=== PATIENT | female | born 1990 | race Caucasian/White ===

== ENCOUNTER 2020-02-19 10:36 | Inpatient (IN) ==
[2020-02-19] MEDS ORDERED: OXYTOCIN 30 UNITS/500 ML BAG IV PRN ×2 (11:40→18:48)
[2020-02-19] MEDS ORDERED: miSOPROStoL 50 MCG TAB PO ONE (11:40)
[2020-02-19 12:10] LABS: Hematocrit (blood only) 30.6 % (37-47); Hemoglobin 10.8 g/dL (12.0-16.0); Mean Corpuscular Hemoglobin 32.3 pg (25-34); Mean Corpuscular Volume 91.6 fL (80-100); Mean Platelet Volume 10.7 fL (7.4-10.4); Platelet Count 155 K/uL (130-400); RDW Coefficient of Variation 12.9 % (11.5-14.5); RDW Standard Deviation 42.7 fL (36.4-46.3); Red Blood Count 3.34 M/uL (4.2-5.4)
[2020-02-19 12:25] LABS: Mean Corpuscular Hgb Conc 35.3 g/dL (32-36)
[2020-02-19] MEDS: LACTATED RINGER'S 1,000 ML IV PRN ×3 (15:03→17:32)
[2020-02-19 15:28] LABS: Amphetamines+Metham, Urine Pos (Neg); Barbiturates, Urine Neg (Neg); Benzodiazepine, Urine Neg (Neg); Cocaine, Urine Neg (Neg); MDMA (Ecstacy), Urine Neg (Neg); Methadone, Urine Neg (Neg); Opiate, Urine Neg (Neg); Phencyclidine, Urine Neg (Neg)
[2020-02-19] MEDS ORDERED: ePHEDrine sulfate 50 MG/ML AMP ONE (16:40)
[2020-02-19] MEDS ORDERED: fentaNYL citrate 100 MCG/2 ML VIAL ONE (16:41)
[2020-02-19] MEDS ORDERED: BUPIVACAINE 0.25% 30 ML VIAL ONE (16:41)
[2020-02-19] MEDS ORDERED: fentaNYL 2MCG/ML ROPIV 1.25MG/ML 100 ML BAG EPI ONE (16:41)
[2020-02-19] MEDS ORDERED: NALOXONE HCL 1 MG in SODIUM CHLORIDE 0.9% 1000ML 1,000 ML IV PRN (17:16)
[2020-02-19] MEDS ORDERED: fentaNYL 2MCG/ML ROPIV 1.25MG/ML 100 ML BAG EPI PRN (17:16)
[2020-02-19] MEDS ORDERED: ONDANSETRON INJ 2 MG/ML 2 ML VIAL IV PRN (17:16)
[2020-02-19] MEDS ORDERED: ePHEDrine sulfate 50 MG/ML AMP IV PRN (17:16)
[2020-02-19] MEDS ORDERED: DiphenhydrAMINE HCL 50 MG/ML VIAL IV PRN (17:16)
[2020-02-19] MEDS ORDERED: NALOXONE HCL 0.4 MG/1 ML VIAL/CARP IV PRN (17:16)
--- NOTE | 2020-02-19 17:20 | Anesthesiology Consultation ---
Date of Service February 19, 2020 Assessment & Plan Chart Review Chart Review: Patient NOT seen in Pre Admission Testing and Acceptable Risk for Labor Epidural Consults Requested none ASA ASA2 Proposed Anesthesia Anesthesia Type: Labor Epidural and CSE Risk / Benefits Reviewed With: PT / POA / Parent / Guardian, Accepts Plan and Informed Consent Obtained History Height/Weight Height: 5 ft 5 in Weight: 60.328 kg Allergies Allergy/AdvReac Type Severity Reaction Status Date / Time latex Allergy Hives Verified 02/19/20 10:49 Medications Home Medications Medication Instructions Recorded Confirmed Last Taken PNV cmb#95-ferrous fumarate-FA 1 tab PO DAILY 01/19/20 02/19/20 02/19/20 [] buprenorphine HCl 4 mg SUBLINGUAL DAILY 01/19/20 02/19/20 02/19/20 ferrous sulfate [iron] 325 mg PO DAILY 01/19/20 02/19/20 02/18/20 Active Medications Generic Name Dose Route Start Last Admin Trade Name Freq PRN Reason Stop Dose Admin Lactated Ringer's 1,000 mls @ 125 mls/hr 02/19/20 11:40 02/19/20 16:38 Lr IV 02/21/20 11:39 999 mls/hr .Q8H PRN Administration L&D Protocol Protocol NPO Date Last Intake of Fluids: 02/19/20 Time Last Intake of Fluids: 15:00 Date Last Intake of Solids: 02/19/20 Time Last Intake of Solids: 11:30 Past Medical History Medical History (Updated 02/19/20 @ 17:19 by Tian Ugarte MD) Anxiety Buprenorphine and naloxone maintenance treatment affecting in third trimester, antepartum Depression Exercise / Class Metabolic Activity II 4-5 Yardwork/Stairs/Walk up hill Past Surgical History Surgical History Mccune teeth extracted Past Anesthesia History No Hx of Anesthesia Complications and No Family Hx of Anesthesia Complications History of PONV No Hx of PONV and History of PONV Social History Smoking Status: Current every day smoker tobacco type: cigarettes Smoking cigarettes per day: 10 Do You Dip or Chew Tobacco: No Hx Alcohol Use: No Hx Substance Use: No Review of Systems no chest pain or sob Physical Exam Vital Signs Last Vital Signs Temp 36.5 C 02/19/20 16:49 Pulse 89 02/19/20 17:15 Resp 16 02/19/20 15:50 BP 123/74 02/19/20 16:49 Pulse Ox 100 02/19/20 17:15 ENMT Mouth: no TMJ abnormality Thyromental Distance: > or= 3.5 Finger Breadths Mallampati Class: II Neck normal visual inspection Respiratory normal respiratory effort Auscultation: lungs clear to auscultation bilaterally Cardiovascular Rate/Rhythm: regular rate and regular rhythm Musculoskeletal Spine: normal cervical ROM Neurologic moves all extremities Psychiatric Orientation: alert and oriented x 3 Testing Laboratory Results 02/19/20 12:00
[2020-02-19] MEDS ORDERED: BENZOCAINE 20% AER SPR 82.5 GM CAN EXT PRN (18:48)
[2020-02-19] MEDS ORDERED: bisacodyL 10 MG SUPP PR PRN (18:48)
[2020-02-19] MEDS ORDERED: OXYCODONE/ACETAMINOPHEN 5mg/325mg TAB PO PRN (18:48)
[2020-02-19] MEDS ORDERED: ACETAMINOPHEN W/CODEINE #3 1 TAB PO PRN (18:48)
[2020-02-19] MEDS ORDERED: HYDROCORTISONE ACETATE 25 MG SUPP PR PRN (18:48)
[2020-02-19] MEDS ORDERED: SUPERCREAM 0.870% 15 GM JAR EXT PRN (18:48)
[2020-02-19] MEDS ORDERED: DIPHTHERIA/TETANUS/PERTUSSIS 0.5 ML SYR/VIAL IM ONE (18:48)
[2020-02-19] MEDS ORDERED: ACETAMINOPHEN 325 MG TAB PO PRN (18:48)
--- NOTE | 2020-02-19 19:36 | Anesthesia Procedure Note ---
Date of Service February 19, 2020 Anesthesia Post Epidural Note Vital Signs Vital Signs: Temp Pulse Resp BP Pulse Ox 36.8 C 70 22 113/76 99 02/19/20 18:03 02/19/20 19:32 02/19/20 18:03 02/19/20 19:32 02/19/20 18:46 Pain Intensity Abdomen: Pain Intensity: 6 Notes Mental Status: alert / awake / arousable and participated in evaluation Patient Amnestic to Procedure: No Nausea / Vomiting: adequately controlled Pain: adequately controlled Airway Patency, RR, SpO2: stable & adequate BP & HR: stable & adequate Hydration State: stable & adequate Neuraxial Anesthesia: was administered and sensory block is resolving Anesthetic Complications: no major complications apparent and Pt Satisfied with anesthetic care Epidural: Removed without complications and With tip intact
[2020-02-19] MEDS: DOCUSATE SODIUM 100 MG CAP PO SCH (20:47)
[2020-02-19] MEDS: NICOTINE 21 MG/24 HR TDSY TD SCH (20:47)
--- NOTE | 2020-02-19 22:51 | Delivery Summary ---
DATE OF OPERATION: 02/19/2020 Ms. Bee is a 2, para 2, blood type is A positive, group B strep negative. Due date 02/24/2020. She is admitted at 39 weeks 2 days with jackie rupture of membranes. On admission, she was about 3 cm, head was well applied to the cervix, was about 80% effaced, moderately firm, about 0 station. She was started on p.o. Cytotec 50 mcg one dose. When she began to have irregular contractions that began to get harder, 4 hours later, I came in to check her, she was in bed, she said she was starting to breath through her contractions. At that time, she was about 6-8 cm and I asked her if she wanted an epidural and she said yes. She got an epidural. Soon after the epidural was placed, she became fully dilated and started to push. She pushed for about half an hour, delivered a live male infant via direct occiput anterior position over an intact perineum. Infant was suctioned through the mouth and the nose. There was a tight nuchal cord, it could not be reduced over the head. It had to be clamped and cut and then the was delivered without difficulty. I stripped what portion of the cord was attached, then reclamped it and handed the off. I then took cord blood. With IV Pitocin running, the placenta was removed intact. Bleeding was minimal. Estimated blood loss was 100 mL. Placenta was removed intact and the perineum was intact. Following this, the procedure was terminated. IV Pitocin was running. Apgars are deferred to the nurses. I attest to the content of the Intraoperative Record and any orders documented therein. Any exception s are noted below.
[2020-02-19] MEDS: IBUPROFEN 600 MG TAB PO PRN (23:42)
[2020-02-20] MEDS ORDERED: Nursing to Pharmacy Communication SCH (01:45)
[2020-02-20 05:49] LABS: Hemoglobin 9.3 g/dL (12.0-16.0); Mean Corpuscular Hemoglobin 33.1 pg (25-34); Mean Corpuscular Hgb Conc 35.8 g/dL (32-36); Mean Corpuscular Volume 92.5 fL (80-100); Mean Platelet Volume 10.7 fL (7.4-10.4); Platelet Count 128 K/uL (130-400); RDW Coefficient of Variation 13.1 % (11.5-14.5); RDW Standard Deviation 44.2 fL (36.4-46.3); Red Blood Count 2.81 M/uL (4.2-5.4); White Blood Count 7.03 K/uL (4.8-10.8)
[2020-02-20] MEDS: PRENATAL VITAMIN 1 TAB PO SCH (08:21)
[2020-02-20] MEDS: FERROUS SULFATE 325 MG TAB PO SCH (08:21)
[2020-02-20] MEDS: buprenorphine HCL 2 MG SUBL SL SCH ×2 (08:22→20:33)
[2020-02-20] MEDS: IBUPROFEN 600 MG TAB PO PRN (08:22)
[2020-02-20] MEDS: DOCUSATE SODIUM 100 MG CAP PO SCH (08:22)
[2020-02-20] MEDS: NICOTINE 21 MG/24 HR TDSY TD SCH (08:24)
--- NOTE | 2020-02-20 09:12 | Obstetrical Progress Note ---
Date of Service February 20, 2020 Assessment & Plan Admission and Anticipated Discharge Date Admission Date: February 19, 2020 Subjective Patient is seen and examined. She feels well, no complaints. Ambulating without dizziness Voiding without difficulty Tolerating regular diet with out N&V Bleeding is minimal No fever/ chills/ CP/ SOB/ N&V/ Leg pain Breast feeding without problems Vital Signs Temp Pulse Pulse Resp BP BP Pulse Ox 02/20/20 08:17 36.5 C 52 L 18 113/71 100 02/20/20 04:15 36.8 C 77 18 116/77 02/19/20 21:26 93 H 127/72 Lab Results 02/19/20 02/19/20 02/20/20 Range/Units 12:00 14:50 05:36 WBC 5.70 7.03 (4.8-10.8) K/uL RBC 3.34 L 2.81 L (4.2-5.4) M/uL Hgb 10.8 L 9.3 L (12.0-16.0) g/dL Hct 30.6 L 26.0 L (37-47) % MCV 91.6 92.5 (80-100) fL MCH 32.3 33.1 (25-34) pg MCHC 35.3 35.8 (32-36) g/dL RDW Std Deviation 42.7 44.2 (36.4-46.3) fL RDW Coeff of Danae 12.9 13.1 (11.5-14.5) % Plt Count 155 128 L (130-400) K/uL MPV 10.7 H 10.7 H (7.4-10.4) fL Urine Opiates Screen Neg (Neg) Ur Methadone, Qual Neg (Neg) Urine Barbiturates Neg (Neg) Ur Phencyclidine (PCP) Neg (Neg) U Amphetamin/Meth Scrn Pos H (Neg) MDMA (Ecstasy) Screen Neg (Neg) U Benzodiazepines Scrn Neg (Neg) Ur Cocaine Metabolite Neg (Neg) U Marijuana (THC) Screen Pos H (Neg) PE: General: Alert, orientedx3, NAD Abd: soft, NT, fundus firm, below Umbilicus Perineum intact, Lochia rubra minimal Ext; NT, no edema AP: 29 yo s/p , ppd# 1 VSS Afebrile doing well Continue routine care All questions were answered D/C home tomorrow Results & Data ([facility]) Vital Signs (Past 12 Hours) Vital Signs Temp Pulse Pulse Resp BP BP Pulse Ox 02/20/20 08:17 36.5 C 52 L 18 113/71 100 02/20/20 04:15 36.8 C 77 18 116/77 02/19/20 21:26 93 H 127/72
[2020-02-20] MEDS ORDERED: bisacodyL 5 MG TABEC PO SCH (20:00)
[2020-02-21 06:13] LABS: Basophils # (auto) 0.01 K/uL (0-0.2); Basophils % (auto) 0.1 %; Eosinophils # (auto) 0.11 K/uL (0-0.5); Eosinophils % (auto) 1.5 %; Hematocrit (blood only) 26.2 % (37-47); Hemoglobin 9.2 g/dL (12.0-16.0); Immature Granulocytes # (auto) 0.01 K/uL (0.00-0.02); Immature Granulocytes % (auto) 0.1 %; Lymphocytes # (auto) 1.93 K/uL (1.2-3.4); Lymphocytes % (auto) 27.2 %; Mean Corpuscular Hgb Conc 35.1 g/dL (32-36); Mean Corpuscular Volume 93.9 fL (80-100); Mean Platelet Volume 10.6 fL (7.4-10.4); Monocytes # (auto) 0.54 K/uL (0.11-0.59); Monocytes % (auto) 7.6 %; Neutrophils % (auto) 63.5 %; Platelet Count 146 K/uL (130-400); RDW Coefficient of Variation 13.2 % (11.5-14.5); RDW Standard Deviation 45.4 fL (36.4-46.3); Red Blood Count 2.79 M/uL (4.2-5.4)
[2020-02-21] MEDS: FERROUS SULFATE 325 MG TAB PO SCH (08:29)
[2020-02-21] MEDS: DOCUSATE SODIUM 100 MG CAP PO SCH (08:29)
[2020-02-21] MEDS: PRENATAL VITAMIN 1 TAB PO SCH (08:29)
[2020-02-21] MEDS: buprenorphine HCL 2 MG SUBL SL SCH (08:30)
[2020-02-21] MEDS: NICOTINE 21 MG/24 HR TDSY TD SCH (08:30)
[2020-02-21] MEDS: IBUPROFEN 600 MG TAB PO PRN (08:36)
--- NOTE | 2020-02-21 10:47 | Obstetrical Progress Note ---
Date of Service February 21, 2020 Assessment & Plan Admission and Anticipated Discharge Date Admission Date: February 19, 2020 Subjective PPD#1 doing well plan for d/c out of bed tolerating diet passing gas Physical Exam Constitutional: WD/WN, vitals as above comfortable no edema neg Sharee's for d/c Results & Data ([facility]) Vital Signs (Past 12 Hours) Vital Signs Temp Pulse Resp BP Pulse Ox 02/21/20 08:20 37 C 62 16 91/52 L 98 02/21/20 01:15 36.9 C 74 18 129/81 99 Laboratory Results 02/19/20 02/19/20 02/20/20 12:00 14:50 05:36 WBC 5.70 7.03 RBC 3.34 L 2.81 L Hgb 10.8 L 9.3 L Hct 30.6 L 26.0 L MCV 91.6 92.5 MCH 32.3 33.1 MCHC 35.3 35.8 RDW Std Deviation 42.7 44.2 RDW Coeff of Danae 12.9 13.1 Plt Count 155 128 L MPV 10.7 H 10.7 H Immature Gran % (Auto) Neut % (Auto) Lymph % (Auto) [place] % (Auto) Eos % (Auto) Baso % (Auto) Neut # (Auto) Lymph # (Auto) [place] # (Auto) Eos # (Auto) Baso # (Auto) Immature Gran # (Auto) Urine Opiates Screen Neg Ur Methadone, Qual Neg Urine Barbiturates Neg Ur Phencyclidine (PCP) Neg U Amphetamin/Meth Scrn Pos H MDMA (Ecstasy) Screen Neg U Benzodiazepines Scrn Neg Ur Cocaine Metabolite Neg U Marijuana (THC) Screen Pos H Hepatitis C Antibody 02/20/20 02/21/20 20:20 05:34 WBC 7.10 RBC 2.79 L Hgb 9.2 L Hct 26.2 L MCV 93.9 MCH 33.0 MCHC 35.1 RDW Std Deviation 45.4 RDW Coeff of Danae 13.2 Plt Count 146 MPV 10.6 H Immature Gran % (Auto) 0.1 Neut % (Auto) 63.5 Lymph % (Auto) 27.2 [place] % (Auto) 7.6 Eos % (Auto) 1.5 Baso % (Auto) 0.1 Neut # (Auto) 4.50 Lymph # (Auto) 1.93 [place] # (Auto) 0.54 Eos # (Auto) 0.11 Baso # (Auto) 0.01 Immature Gran # (Auto) 0.01 Urine Opiates Screen Ur Methadone, Qual Urine Barbiturates Ur Phencyclidine (PCP) U Amphetamin/Meth Scrn MDMA (Ecstasy) Screen U Benzodiazepines Scrn Ur Cocaine Metabolite U Marijuana (THC) Screen Hepatitis C Antibody Prelim Pos A
[2020-02-21 22:59] LABS: Amphetamine Urine, Confirm 2130 ng/mL (<250); Marijuana Quant, GCMS Urine 622 ng/mL (<5); Methamphetamine, Ur Confirm 7690 ng/mL (<250)
== END 2020-02-21 18:31 | disposition home or self-care (01) | DRG 806 ==
LOC: OPB 10:36 → 4S1 10:36 → 4S2 21:56